=== PATIENT | male | born 1945 | race Caucasian/White ===

== ENCOUNTER 2018-05-24 08:16 | Outpatient (CLI) | payer OTHER ==
--- NOTE | 2018-05-24 09:32 | Ultrasound Report ---
Procedure Date: 05/24/2018 Accession Number: [id number] / [id number] Procedure: US - Aorta Screening CPT Code: FULL RESULT: EXAM: Aorta Screening DATE: 05/24/2018 9:09 AM CLINICAL HISTORY: ENCOUNTER FOR SCREENING, UNSPECIFIEDENCOUNTER FOR TECHNIQUE: Real-time scanning, with branch service representative static images obtained. COMPARISON: None FINDINGS: The abdominal aorta is normal in caliber, measuring 2.7 cm proximally, 2.3 cm in the midportion, and 1.7 cm distally. The iliac arteries are normal in caliber. No free fluid. IMPRESSION: No evidence of abdominal aortic aneurysm.
== END 2018-05-24 08:17 | disposition home or self-care (01) ==
LOC: DI 08:16
PROVIDERS: ATTEND Family Medicine
DX: Z13.6 Encounter for screening for cardiovascular disorders (principal)
CPT/HCPCS: 76706

== ENCOUNTER 2019-05-21 08:47 | Outpatient (CLI) | payer OTHER ==
[2019-05-21] MEDS ORDERED: GADOBUTROL 10 MMOL/10 ML VIAL IV ONE (10:15)
[2019-05-21] MEDS ORDERED: GADOBUTROL 10 MMOL/10 ML VIAL ONE (10:16)
--- NOTE | 2019-05-23 01:12 | MRI Report ---
Reason: DIZZINESS Procedure Date: 05/21/2019 Accession Number: [id number] / [id number] Procedure: MRI - Angio Brain W/O (MRA) CPT Code: FULL RESULT: EXAM MRA BRAIN EXAM DATE: 05/21/2019 09:24 AM. CLINICAL HISTORY: Dizziness. COMPARISON: None. TECHNIQUE: Multiplanar, multisequence MRA sequences of the brain were performed. Other: None. Post-processing: Multiplanar 3D MIP reconstructions. IV Contrast: None. FINDINGS: The internal carotid arteries are patent from the superior cervical to the supraclinoid portions. The bilateral A1, M1, and M2 segments are patent. A triplicated anterior cerebral artery is present, a normal variant. No aneurysm is seen in the expected location of the anterior communicating artery. In the posterior circulation, the bilateral V4 segments are patent. A left AICA/PICA variant is present. The right PICA is well-demonstrated. The basilar artery is widely patent throughout its course to the terminus. Normal flow voids are seen in the superior cerebellar and posterior cerebral arteries. Bilateral posterior communicating arteries are present. IMPRESSION: Normal brain MRA. No stenoses or aneurysms. RADIA
--- NOTE | 2019-05-23 01:16 | MRI Report ---
Reason: DIZZINESS Procedure Date: 05/21/2019 Accession Number: [id number] / [id number] Procedure: MRI - Brain W/WO CPT Code: FULL RESULT: EXAM: MRI BRAIN AND INTERNAL AUDITORY CANAL (IAC),WITHOUT AND WITH CONTRAST EXAM DATE: 05/21/2019 10:30 AM. CLINICAL HISTORY: Dizziness. COMPARISON: None. TECHNIQUE: Multiplanar, multisequence T1-weighted and fluid-sensitive MRI sequences of the brain and IACs were performed. Other: None. IV Contrast: 8.5 mL Gadavist. FINDINGS: Brain Volume: There is mild generalized cerebral volume loss, in keeping with the patient's age. Parenchyma/Dura: No acute hemorrhage, mass, or acute infarct.Very mild periventricular T2 hyperintensity is present, typically reflecting chronic microvascular ischemic changes in a patient of this age. No abnormal enhancement. Internal Auditory Canals (IACs): The high-resolution images through the posterior fossa demonstrate normal fluid signal intensity in the cochlea and semicircular canals bilaterally. No abnormal mass lesion or enhancement is seen along the cisternal course of the fifth, seventh, and eighth cranial nerves. The vestibular aqueducts are not enlarged. Ventricles/Cisterns: No hydrocephalus. No abnormal extra-axial fluid collection or hemorrhage. Orbits: Symmetric and unremarkable. Sella Turcica: The pituitary gland, cavernous sinuses, suprasellar cistern and optic chiasm are unremarkable. Vasculature: Normal signal flow void is seen in the major arterial structures at the skull base. The dural sinuses are patent and enhance normally. Sinuses: A tiny mucous retention cyst is noted in the left maxillary sinus. The mastoid sinuses are not opacified. Bones: No focal pathologic appearing marrow signal changes. IMPRESSION: 1. No acute infarct, intracranial mass lesion, or hemorrhage. 2. Mild senescent changes. 3. No acute retrocochlear abnormality. RADIA
== END 2019-05-21 08:48 | disposition home or self-care (01) ==
LOC: DI 08:47
PROVIDERS: ATTEND Nurse Practitioner Family
DX: R42 Dizziness and giddiness (principal)
CPT/HCPCS: 70544; 70553; A9585

== ENCOUNTER 2019-06-16 14:52 | Outpatient (CLI) | payer OTHER ==
[2019-06-16 15:50] LABS: CREATININE 1.1 mg/dL (0.6-1.2)
[2019-06-16] MEDS ORDERED: GADOBUTROL 10 MMOL/10 ML VIAL ONE (16:25)
[2019-06-16] MEDS ORDERED: GADOBUTROL 10 MMOL/10 ML VIAL IV ONE (19:02)
--- NOTE | 2019-06-16 20:59 | MRI Report ---
Reason: LIGHTHEADEDNESS,SYNCOPAL AND COLLAPSE Procedure Date: 06/16/2019 Accession Number: [id number] / [id number] Procedure: MRI - Angio Neck W/WO (MRA) CPT Code: FULL RESULT: EXAM: MR ANGIOGRAM NECK EXAM DATE: 06/16/2019 05:00 PM. CLINICAL HISTORY: Lightheadedness, syncopal AND COLLAPSE. COMPARISON: Prior MRI brain, MR angiogram brain 05/21/2019. TECHNIQUE: Multiplanar, multisequence MRA sequences of the neck were performed. Other: None. Post-processing: Multiplanar 3D MIP reconstructions. IV Contrast: 9 cc Gadavist. Evaluation of arterial stenosis is based on a NASCET method of measurement. Findings: Relevant images are indicated (image number, series number). Aortic arch: Widely patent, normal configuration of the great vessels. Left carotid artery: Widely patent. Right carotid artery: Widely patent. Left vertebral artery: Diffusely small, appears grossly patent. Right vertebral artery: Dominant vessel, patent. Impressions: 1. Patent major arteries of the neck as described without dissection or apparent significant stenosis. The left vertebral artery is diffusely small and poorly seen proximally but appears grossly patent. RADIA
== END 2019-06-16 14:53 | disposition home or self-care (01) ==
LOC: LAB 14:52 → DI 14:53
PROVIDERS: ATTEND Nurse Practitioner Family
DX: R42 Dizziness and giddiness (principal); R55 Syncope and collapse
CPT/HCPCS: 36415; 70549; 82565; A9585

== ENCOUNTER 2021-11-13 19:23 | Outpatient (CLI) | payer OTHER | END 2021-11-13 19:24 | disposition EMS.NT | LOC: EMS 19:23 | DX: Z03.89 Encounter for observation for other suspected diseases and conditions ruled out (principal) ==

== ENCOUNTER 2021-11-14 15:05 | Outpatient (CLI) | payer OTHER | END 2021-11-14 15:06 | disposition EMS.NT | LOC: EMS 15:05 | DX: R06.02 Shortness of breath (principal); R53.1 Weakness; R50.9 Fever, unspecified ==

== ENCOUNTER 2021-11-16 23:14 | Outpatient (CLI) | payer OTHER | END 2021-11-16 23:15 | disposition E | LOC: EMS 23:14 | DX: I46.9 Cardiac arrest, cause unspecified (principal) | CPT/HCPCS: A0425; A0429 ==